=== PATIENT | female | born 2000 | race African-American/Black ===

== ENCOUNTER 2020-11-07 12:18 | Emergency (ER) | payer OTHER, SELFPAY ==
--- NOTE | 2020-11-07 13:21 | ER ---
Nurse's Notes [facility] Name: Arielle Little Age: 20 yrs Sex: Female : 2000 Arrival Date: 11/07/2020 Time: 12: Bed 24 Private MD: Diagnosis: Anxiety disorder, unspecified Presentation: 11/07 12:43 Chief complaint: Patient states: Anxiety off/on for 1 month. States she has trouble ll1 sleeping, racing thoughts. Affecting her work now. No SI or HI. Coronavirus screen: Client denies travel out of the [place] in the last 14 days. At this time, the client does not indicate any symptoms associated with coronavirus-19. Ebola Screen: Patient denies travel to an Ebola-affected area in the 21 days before illness onset. Initial Sepsis Screen: Does the patient meet any 2 criteria? No. Patient's initial sepsis screen is negative. Does the patient have a suspected source of infection? No. Patient's initial sepsis screen is negative. Risk Assessment: Do you want to hurt yourself or someone else? Patient reports no desire to harm self or others. Onset of symptoms was October 10, 2020. 12:43 Method Of Arrival: Ambulatory ll1 12:43 Acuity: JOSE 3 ll1 Historical: - Allergies: 12:45 No Known Allergies; ll1 - PMHx: 12:45 None; ll1 - PSHx: 12:45 None; ll1 - Immunization history:: Flu vaccine is not up to date. - Social history:: Smoking status: Reported history of juuling and/or vaping. Patient denies any tobacco usage or history of. - Family history:: not pertinent. - Hospitalizations: : No recent hospitalization is reported. Screenin:25 Abuse screen: Denies threats or abuse. Denies injuries from another. Nutritional ss screening: No deficits noted. Tuberculosis screening: Never had TB. Fall Risk None identified. Assessment: 13:13 General: Appears in no apparent distress. uncomfortable, Behavior is cooperative, vg1 anxious. Pain: Denies pain. Neuro: Level of Consciousness is awake, alert, obeys commands, Oriented to person, place, time, situation. Cardiovascular: Patient's skin is warm and dry. Respiratory: Airway is patent Respiratory effort is even, unlabored, Respiratory pattern is regular, symmetrical. GI: No signs and/or symptoms were reported involving the gastrointestinal system. : No signs and/or symptoms were reported regarding the genitourinary system. EENT: No signs and/or symptoms were reported regarding the EENT system. Derm: Skin is intact, is healthy with good turgor. Musculoskeletal: Circulation, motion, and sensation intact. 13:25 Reassessment: Patient appears in no apparent distress at this time. Patient and/or ss family updated on plan of care and expected duration. Pain level reassessed. General: Appears in no apparent distress. comfortable, Behavior is calm, cooperative. Vital Signs: 12:43 BP 141 / 94; Pulse 77; Resp 16; Temp 98.4; Pulse Ox 99% ; Weight 76.66 kg; Height 5 ft. ll1 2 in. (157.48 cm); Pain 0/10; 13:26 BP 146 / 89; Pulse 66; Resp 16; Pulse Ox 100% on R/A; vg1 12:43 Body Mass Index 30.91 (76.66 kg, 157.48 cm) ll1 ED Course: 12:22 Patient arrived in ED. mr 12:45 Triage completed. ll1 12:45 Arm band placed on. ll1 12:58 Tucker Chandler MD is Attending Physician. rn 13:10 Julianne Ro, RAE is Primary Nurse. vg1 13:20 Noé Cunningham MD is Referral Physician. rn 13:25 No provider procedures requiring assistance completed. Patient did not have IV access ss during this emergency room visit. 13:26 Patient has correct armband on for positive identification. Bed in low position. Call vg1 light in reach. Administered Medications: No medications were administered Outcome: 13:21 Discharge ordered by . rn 13:25 Discharged to home ambulatory. ss 13:25 Condition: good 13:25 Discharge instructions given to patient, Instructed on discharge instructions, follow up and referral plans. Demonstrated understanding of instructions, follow-up care. 13:26 Patient left the ED. ss Signatures: Mojica, Nelly mr Tucker Chandler MD MD rn Smirch, Shelby, RN RN ss Garcia, Victoria, RN RN vg1 Brad Mcintosh RN RN ll1
--- NOTE | 2020-11-07 13:21 | EDPHYS ---
Physician Documentation [facility] Name: Arielle Little Age: 20 yrs Sex: Female : 2000 Arrival Date: 11/07/2020 Time: : Bed 24 Private MD: ED Physician Tucker Chandler HPI: 11/07 13:16 This 20 yrs old Black Female presents to ER via Ambulatory with complaints of Anxiety. rn 13:16 The patient presents to the emergency department with anxiety, over unknown rn circumstances. 13:16 Onset: The symptoms/episode began/occurred 1 month(s) ago. Associated signs and rn symptoms: Pertinent positives; anxiety, Pertinent negatives: hallucinations, homicidal ideation, shortness of breath, suicide ideation, tremor, vomiting. Severity of symptoms: At their worst the symptoms were moderate in the emergency department the symptoms have improved. The patient has not experienced similar symptoms in the past. The patient has not recently seen a physician. Reports anxiety for 1 month, intermittent, not daily, feels like can't fall asleep, and worries a lot. Mom has anxiety and has tried some things without medication to gain control, feels like she can't, hasn't seen psychiatry. . Historical: - Allergies: 12:45 No Known Allergies; ll1 - PMHx: 12:45 None; ll1 - PSHx: 12:45 None; ll1 - Immunization history:: Flu vaccine is not up to date. - Social history:: Smoking status: Reported history of juuling and/or vaping. Patient denies any tobacco usage or history of. - Family history:: not pertinent. - Hospitalizations: : No recent hospitalization is reported. ROS: 13:16 Constitutional: Negative for fever, chills, and weight loss, Eyes: Negative for injury, rn pain, redness, and discharge, Neck: Negative for injury, pain, and swelling, Cardiovascular: Negative for chest pain, palpitations, and edema, Respiratory: Negative for shortness of breath, cough, wheezing, and pleuritic chest pain, Abdomen/GI: Negative for abdominal pain, nausea, vomiting, diarrhea, and constipation, Back: Negative for injury and pain, MS/Extremity: Negative for injury and deformity, Skin: Negative for injury, rash, and discoloration, Neuro: Negative for headache, weakness, numbness, tingling, and seizure. 13:16 All other systems are negative. Exam: 13:16 Constitutional: This is a well developed, well nourished patient who is awake, alert, rn and in no acute distress. Head/Face: Normocephalic, atraumatic. Eyes: Pupils equal round and reactive to light, extra-ocular motions intact. Lids and lashes normal. Conjunctiva and sclera are non-icteric and not injected. Cornea within normal limits. Periorbital areas with no swelling, redness, or edema. Cardiovascular: Regular rate and rhythm. No pulse deficits. Respiratory: No increased work of breathing, no retractions or nasal flaring. Skin: Warm, dry with normal turgor. Normal color with no rashes, no lesions, and no evidence of cellulitis. MS/ Extremity: Pulses equal, no cyanosis. Neurovascular intact. Full, normal range of motion. Equal circumference. Neuro: Awake and alert, GCS 15, oriented to person, place, time, and situation. Cranial nerves II-XII grossly intact. Motor strength 5/5 in all extremities. Sensory grossly intact. Cerebellar exam normal. Normal gait. Vital Signs: 12:43 BP 141 / 94; Pulse 77; Resp 16; Temp 98.4; Pulse Ox 99% ; Weight 76.66 kg; Height 5 ft. ll1 2 in. (157.48 cm); Pain 0/10; 13:26 BP 146 / 89; Pulse 66; Resp 16; Pulse Ox 100% on R/A; vg1 12:43 Body Mass Index 30.91 (76.66 kg, 157.48 cm) ll1 MDM: 12:58 Patient medically screened. rn 13:16 Differential diagnosis: anxiety, generalized. Data reviewed: vital signs, nurses notes, rn and as a result, I will discharge patient. Counseling: I had a detailed discussion with the patient and/or guardian regarding: the historical points, exam findings, and any diagnostic results supporting the discharge/admit diagnosis, the need for outpatient follow up, to return to the emergency department if symptoms worsen or persist or if there are any questions or concerns that arise at home. Special discussion: I discussed with the patient/guardian in detail that at this point there is no indication for admission to the hospital. It is understood, however, that if the symptoms persist or worsen the patient needs to return immediately for re-evaluation. Based on the history and exam findings, there is no indication for further emergent testing or inpatient evaluation. I discussed with the patient/guardian the need to see the psychiatrist for further evaluation of the symptoms. ED course: Offered anti-depressant vs psychiatry f/u, pt chooses psychiatry. . Administered Medications: No medications were administered Disposition: 11/07/20 13:21 Discharged to Home. Impression: Anxiety disorder, unspecified. - Condition is Stable. - Discharge Instructions: Panic Attacks, Generalized Anxiety Disorder. - Medication Reconciliation Form, Thank You Letter, Antibiotic Education, Prescription Opioid Use form. - Follow up: Noé Cunningham MD; When: As needed; Reason: Recheck today's complaints, Re-evaluation by your physician. - Problem is an ongoing problem. - Symptoms have improved. Signatures: Tucker Chandler MD MD rn Smirch, Shelby, RN RN ss Brad Mcintosh RN RN ll1 Corrections: (The following items were deleted from the chart) 13:26 13:21 11/07/2020 13:21 Discharged to Home. Impression: Anxiety disorder, unspecified. ss Condition is Stable. Forms are Medication Reconciliation Form, Thank You Letter, Antibiotic Education, Prescription Opioid Use. Follow up: Noé Cunningham; When: As needed; Reason: Recheck today's complaints, Re-evaluation by your physician. Problem is an ongoing problem. Symptoms have improved. rn
[2020-11-07 13:30] VITALS: TEMP 98.4
[2020-11-07 13:31] VITALS: BP 146/89; O2SAT 100
== END 2020-11-07 13:26 | disposition home or self-care (01) ==
LOC: ER 12:18
DX: F41.9 Anxiety disorder, unspecified (principal); F17.290 Nicotine dependence, other tobacco product, uncomplicated
CPT/HCPCS: 99281

== ENCOUNTER 2021-01-08 17:34 | Emergency (ER) | payer OTHER, SELFPAY ==
[2021-01-08] MEDS ORDERED: ACETAMINOPHEN 500 MG TAB ONE (18:12)
[2021-01-08] MEDS ORDERED: ONDANSETRON 4 MG (ODT) TAB ONE (18:13)
--- NOTE | 2021-01-08 18:21 | RAD REPORT ---
EXAM DESCRIPTION: Tarny Single View01/08/2021 6:12 pm CLINICAL HISTORY: Chest pain COMPARISON: none FINDINGS: The lungs appear clear of acute infiltrate. The heart is normal size IMPRESSION: No acute abnormalities displayed
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
[2021-01-08 19:38] VITALS: TEMP 97.8
[2021-01-08 19:43] VITALS: BP 118/78; O2SAT 99
[2021-01-08] MEDS ORDERED: IBUPROFEN 400 MG TAB ONE (20:31)
[2021-01-08] MEDS ORDERED: IBUPROFEN 200 MG TAB PO ONE (20:31)
== END 2021-01-08 19:16 | disposition home or self-care (01) ==
LOC: ER 17:34
DX: R07.89 Other chest pain (principal); V43.52XA Car driver injured in collision with other type car in traffic accident, initial encounter
CPT/HCPCS: 71045; 99284

== ENCOUNTER 2021-10-31 14:14 | Emergency (ER) | payer SELFPAY ==
--- OUTSIDE RECORDS SUMMARY | 2021-10-31 14:17 | XMS REPORT | Continuity of Care Document ---
:2000 Author Organization [facility] t Address [address] [place] [address] Care Team Providers Name Role Phone PCP, DOES NOT HAVE A Primary Care Physician Unavailable Giuliano GARCIA Attending Clinician Unavailable Giuliano Clark Attending Clinician Payers Payer Name Policy Type Policy Number Effective Date Expiration Date Cesar espitia [id number] 2021 00:00:00 Problems Condition Condition Condition Status Onset Resolution Last Treating Co mments Source Name Details Category Date Date Treatment Clinician Date Other Other Disease Active 2020-08 Univers general general 0-05 [place] of counseling [place] and advice 00 Or dical for for Branch contracept contracept ceila celia management management Obesity Obesity Disease Active 2020-08 Univers (BMI (BMI 0-05 ity of 30-39.9) 30-39.9) 00:00: [place] [address] Medical Branch Allergies, Adverse Reactions, Alerts Allergy Allergy Status Severity Reaction(s) Onset Inactive Treating Comm ents Source Name Type Date Date Clinician NO KNOWN Drug Active Univers ALLERGIE Class ity of S [place] [facility] [place] Social History Social Habit Start Date Stop Date Quantity Comments Source History SDOH University o f Alcohol Frequency [place] [facility] History SDOH [facility] o f Alcohol Std [place] [facility] Drinks [facility] History SDOH University o f Alcohol Binge [place] [facility] Exposure to Not sure University of SARS-CoV-2 [place] [facility] (event) [facility] Tobacco use and 2021-05-23 2021-05-23 Current user Univers ity of exposure 00:00:00 00:00:00 [facility] Alcohol intake 2021-05-23 2021-05-23 Current drinker Unive rsity of 00:00:00 00:00:00 of alcohol [facility] (finding) [place] Alcohol Comment 2021-05-23 2021-05-23 socially Universit y of 00:00:00 00:00:00 [facility] Tobacco Comment 2021-05-23 2021-05-23 vapes daily sine Uni versity of 00:00:00 00:00:00 2018 [facility] Sex Assigned At [birth year] Universit y of 00:00:00 00:00:00 [facility] Smoking Status Start Date Stop Date Source Never smoker [facility] Medications Ordered Filled Start Stop Current Ordering Indication Dosage Frequency Signature Comments Components Source Medication Medication Date Date Medication? Clinician (SIG) Name Name doxycycline 2020-08- No [id number] 100mg Take 1 Univers hyclate 100 0-07 10-15 tablet by it y of mg tablet 00:00[place] 04[place] Medical times [place] daily for 7 days. doxycycline 2020-08 No [id number] 100mg Take 1 Univers hyclate 100 0-07 10-15 tablet by it y of mg tablet 00:00[place] 04:[place] Medical times [place] daily for 7 days. HYDROXYZINE 2020-08 Yes Take by Un [place]ern[place] HCL ORAL 0-05 mouth. ity of 14:08: [address] HYDROXYZINE 2020-08 Yes Take by Un [place]ern[place] HCL ORAL 0-05 mouth. ity of 14:08: [address] HYDROXYZINE 2020-08 Yes Take by Un [place] HCL ORAL 0-05 mouth. ity of 14:08: [address] HYDROXYZINE 2020-08 Yes Take by Un [place] HCL ORAL 0-05 mouth. ity of 14:08: [address] Vital Signs Vital Name Observation Time Observation Value Comments Source Systolic blood 2021-05-23 18:57:00 128 mm[Hg] Univer sity of pressure [facility] Diastolic blood 2021-05-23 18:57:00 87 mm[Hg] Unive rsity of pressure [facility] Heart rate 2021-05-23 18:57:00 73 /min [facility] Body temperature 2021-05-23 18:57:[address] [facility] rate 2021-05-23 18:57:00 16 /min [facility] Body height 2021-05-23 18:57:00 157.5 cm [facility] Body weight 2021-05-23 18:57:00 77.282 kg [facility] BMI 2021-05-23 18:57:00 31.16 kg/m2 [facility] Procedures This patient has no known procedures. 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 [id number] [facility] [id number] Jeffrey as MATERNAL [id number] [facility] [address] [place] [address] 2021-05-25 2021-05-25 Telephone [facility] [id number] Univers 00:00:00 00:00:00 Shoaib Nobles MANAGEMENT ACCOUNTS MANAGER [id number] ity [facility] [id number] Jeffrey as MATERNAL [id number] [facility] & CHILD [address] [place] [address] 2021-05-23 2021-05-23 [facility] [id number] Univers 13:43:09 14:28:56 Visit Shoaib Nobles MANAGEMENT ACCOUNTS MANAGER [id number] [facility] [id number] Jeffrey as MATERNAL [id number] [facility] ical & CHILD [address] [place] [address] 2021-05-23 2021-05-23 Outpatient Stephany GARCIA [facility] [id number] [facility] 13:45:00 13:45:00 SHOAIB vizcarra [facility] 2021-05-18 2021-05-18 Outpatient R RADHA [facility] [id number] [facility] 09:15:00 09:15:00 SHOAIB vizcarra [facility] Results This patient has no known results.
--- NOTE | 2021-10-31 15:39 | RAD REPORT ---
EXAM DESCRIPTION: RAD - Chest Single View - 10/31/2021 3:23 pm CLINICAL HISTORY: PAIN Chest pain. COMPARISON: Chest Single View dated 01/08/2021 FINDINGS: Portable technique limits examination quality. Interstitial lung markings are mildly prominent suggesting viral infection or asthma. The heart is no rmal in size. No displaced fractures.
--- NOTE | 2021-10-31 16:09 | ER ---
Nurse's Notes [facility] Name: Arielle Little Age: 21 yrs Sex: Female : 2000 Arrival Date: 10/31/2021 Time: 14:18 Bed 23 Private MD: Diagnosis: Cough;Right rib pain Presentation: 10/31 14:31 Chief complaint: Patient states: "The right side ribs hurt real bad when I take a deep ab2 breath or cough." Pt denies chest pain or SOB. Coronavirus screen: Vaccine status: Patient reports receiving the 2nd dose of the covid vaccine. Client denies travel out of the [place] in the last 14 days. At this time, the client does not indicate any symptoms associated with coronavirus-19. Ebola Screen: Patient negative for fever greater than or equal to 101.5 degrees Fahrenheit, and additional compatible Ebola Virus Disease symptoms Patient denies exposure to infectious person. Patient denies travel to an Ebola-affected area in the 21 days before illness onset. No symptoms or risks identified at this time. Initial Sepsis Screen: Does the patient meet any 2 criteria? No. Patient's initial sepsis screen is negative. Does the patient have a suspected source of infection? No. Patient's initial sepsis screen is negative. Risk Assessment: Do you want to hurt yourself or someone else? Patient reports no desire to harm self or others. Onset of symptoms is unknown. 14:31 Method Of Arrival: Ambulatory ab2 14:31 Acuity: JOSE 4 ab2 Triage Assessment: 14:33 General: Appears in no apparent distress. uncomfortable, Behavior is calm, cooperative, ab2 appropriate for age. Pain: Complains of pain in right lateral anterior chest. 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 - Social history:: Smoking status: Reported history of juuling and/or vaping. Patient uses street drugs, marijuana. Screenin:48 Abuse screen: Denies threats or abuse. Nutritional screening: No deficits noted. lr4 Tuberculosis screening: No symptoms or risk factors identified. Fall Risk None identified. Assessment: 14:49 General: Appears in no apparent distress. comfortable, Behavior is calm, cooperative. lr4 Pain: Complains of pain in right lateral anterior chest Pain currently is 7 out of 10 on a pain scale. Pain began gradually, 1 day ago. Is intermittent. Cardiovascular: No deficits noted. Respiratory: No deficits noted. GI: No deficits noted. EENT: Reports nasal discharge that is watery. 14:57 Respiratory: Reports cough that is non-productive. lr4 Vital Signs: 14:31 BP 120 / 77; Pulse 96; Resp 20; Temp 99.1(TE); Pulse Ox 99% on R/A; Weight 74.84 kg; ab2 Height 5 ft. 2 in. (157.48 cm); Pain 10/10; 14:31 Body Mass Index 30.18 (74.84 kg, 157.48 cm) ab2 ED Course: 14:18 Patient arrived in ED. ds1 14:33 Triage completed. ab2 14:42 Arm band placed on right wrist. ab2 14:43 Adi Capellan DO is Attending Physician. ms3 14:48 Julissa Olivera, RAE is Primary Nurse. lr4 14:48 Patient has correct armband on for positive identification. Bed in low position. Call lr4 light in reach. Side rails up X 1. Door closed. Noise minimized. 14:48 No provider procedures requiring assistance completed. lr4 15:11 CXR XRAY Sent. lr4 15:23 CXR XRAY In Process Unspecified. EDMS 16:08 Rory Caballero MD is Referral Physician. ms3 16:47 Patient did not have IV access during this emergency room visit. lr4 Administered Medications: No medications were administered Outcome: 14:49 Condition: stable lr4 16:09 Discharge ordered by . ms3 16:47 Discharged to home ambulatory. lr4 16:47 Discharge instructions given to patient. 16:47 Patient left the ED. lr4 Signatures: Dispatcher [employer] EDCO Halina Watson ds1 Adi Capellan DO DO ms3 Murtaza Schmidt ab2 Julissa Olivera, RN RN lr4 Corrections: (The following items were deleted from the chart) 14:57 14:49 Pain: Complains of pain in right lateral anterior chest Pain currently is 7 out lr4 of 10 on a pain scale. Pain began gradually, 1 day ago. Is intermittent, lr4
--- NOTE | 2021-10-31 16:09 | EDPHYS ---
Physician Documentation [facility] Name: Arielle Little Age: 21 yrs Sex: Female : 2000 Arrival Date: 10/31/2021 Time: 14:18 Bed 23 Private MD: ED Physician Adi Capellan HPI: 10/31 15:15 This 21 yrs old Black Female presents to ER via Ambulatory with complaints of Rib Pain. ms3 15:15 This 21 yrs old Black Female presents to ER via Ambulatory with complaints of Rib Pain. ms3 15:15 The patient or guardian reports chest pain that is located primarily in the Right sided ms3 rib pain. Associated signs and symptoms: Pertinent positives: cough. The chest pain is described as sharp. Modifying factors: The symptoms are alleviated by nothing. the symptoms are aggravated by cough, deep breath. 21-year-old female presents for right-sided rib pain that has been ongoing for 1 week. Patient states pain is worse with coughing or deep breathing. Patient denies fevers, chills, nausea, vomiting. States her discomfort is severe and sharp in nature.. 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 - Social history:: Smoking status: Reported history of juuling and/or vaping. Patient uses street drugs, marijuana. ROS: 15:17 Constitutional: Negative for fever, and chills. Eyes: Negative for injury, pain, ms3 redness, and discharge, ENT: Negative for injury, pain, and discharge, Neck: Negative for injury, pain, and swelling, Cardiovascular: Negative for chest pain, and palpitations. Abdomen/GI: Negative for abdominal pain, nausea, vomiting, diarrhea, and constipation, Back: Negative for injury and pain, Skin: Negative for injury, rash, and discoloration, Neuro: Negative for headache, weakness, numbness, tingling. 15:17 All other systems are negative. 15:17 Cardiovascular: Positive for chest pain, Right side rib pain. ms3 Exam: 15:17 Constitutional: This is a well developed, well nourished patient who is awake, alert, ms3 and in no acute distress. Head/Face: Normocephalic, atraumatic. Eyes: Pupils equal round and reactive to light, extra-ocular motions intact. Lids and lashes normal. Conjunctiva and sclera are non-icteric and not injected. Periorbital areas with no swelling, redness, or edema. Neck: Trachea midline, no cervical lymphadenopathy. Supple, full range of motion without nuchal rigidity, or vertebral point tenderness. No Meningismus. Chest/axilla: Normal chest wall appearance and motion. Nontender with no deformity. Cardiovascular: Regular rate and rhythm with a normal S1 and S2. No gallops, murmurs, or rubs. Normal PMI, no JVD. No pulse deficits. Respiratory: Lungs have equal breath sounds bilaterally, clear to auscultation and percussion. No rales, rhonchi or wheezes noted. No increased work of breathing, no retractions or nasal flaring. Abdomen/GI: Soft, non-tender, with normal bowel sounds. No distension or tympany. No guarding or rebound. No evidence of tenderness throughout. Back: No spinal tenderness. No costovertebral tenderness. Full range of motion. Skin: Warm, dry with normal turgor. Normal color with no rashes, no lesions, and no evidence of cellulitis. MS/ Extremity: Pulses equal, no cyanosis. Neurovascular intact. Full, normal range of motion. Neuro: Awake and alert, GCS 15, oriented to person, place, time, and situation. Cranial nerves II-XII grossly intact. Motor strength 5/5 in all extremities. Sensory grossly intact. Cerebellar exam normal. Normal gait. 15:17 Chest/axilla: Inspection: normal, Palpation: tenderness, that is moderate, of the chest, that totally reproduces the patient's complaints. Vital Signs: 14:31 BP 120 / 77; Pulse 96; Resp 20; Temp 99.1(TE); Pulse Ox 99% on R/A; Weight 74.84 kg; ab2 Height 5 ft. 2 in. (157.48 cm); Pain 10/10; 14:31 Body Mass Index 30.18 (74.84 kg, 157.48 cm) ab2 MDM: 14:55 Patient medically screened. ms3 16:20 Differential diagnosis: chest wall pain, pneumonia, pneumothorax. Data reviewed: vital ms3 signs, nurses notes, radiologic studies, plain films. Data interpreted: Pulse oximetry: on room air is 99 %. Counseling: I had a detailed discussion with the patient and/or guardian regarding: the historical points, exam findings, and any diagnostic results supporting the discharge/admit diagnosis, radiology results, the need for outpatient follow up, to return to the emergency department if symptoms worsen or persist or if there are any questions or concerns that arise at home. ED course: Discussed CXR and PE findings with patient. Patient to follow up with her PMD in 2-3 days. Patient understands/ agrees with plan. All questions answered. Return precautions given to include worsening symptoms, or any other concerns. On re-evaluation patient is a/o x4, nad, non-toxic appearing, speaking full sentences, ambulatory in ED.. 10/31 14:54 Order name: CXR XRAY; Complete Time: 16:06 ms3 Administered Medications: No medications were administered Disposition Summary: 10/31/21 16:09 Discharge Ordered Location: Home ms3 Condition: Stable ms3 Diagnosis - Cough ms3 - Right rib pain ms3 Followup: ms3 - With: Rory Caballero MD - When: 2 - 3 days - Reason: Discharge Instructions: - Discharge Summary Sheet ms3 - Cough, Adult ms3 Forms: - Medication Reconciliation Form ms3 - Thank You Letter ms3 - Antibiotic Education ms3 - Prescription Opioid Use ms3 - Work release form lr4 Prescriptions: - Tessalon Perles 100 mg Oral Capsule - take 1 capsule by ORAL route every 8 hours As needed; 15 capsule; Refills: 0, ms3 Product Selection Permitted Signatures: Dispatcher [employer] EDAdi Blanco, DO DO ms3 Murtaza Schmidt
[2021-10-31 17:43] VITALS: BP 120/77; TEMP 99.1; O2SAT 99
== END 2021-10-31 16:47 | disposition home or self-care (01) ==
LOC: ER 14:14
DX: R05.9 Cough, unspecified (principal)
CPT/HCPCS: 71045; 99283